=== PATIENT | male | born 1930 | race Caucasian/White ===

== ENCOUNTER 2019-12-23 21:00 | Inpatient (IN) | payer MEDICARE, OTHER ==
[~2019-12-23] VITALS: Ht 177.8 cm; Wt 47.2 kg
[~2019-12-23 21:00] MED LIST: ACET650T10 PO; ACET80DR67 PO; ARIP2TAB3 PO; BACL10TA GT; BISA10SU61 RC; CARB-93 GT; CLON0.5T PO; DEXT15DR23 EACHEYE; FENO145T45 PO; FINA5TAB4 PO; GABA100C GT; LOSA50TA3 PO; MAGN400O21 PO; MYLANTA PO; OXYB-58 PO; OXYM30SP84 NS; PANT40SU PO; SUMA100T PO; TAMS-12 PO
--- NOTE | 2019-12-23 21:00 | NUR ---
BIBEMS FROM [facility] C/O LOW O2 SAT 70'S, 95-98% ON NRB MASK PER EMS REPORT.UPON ARRIVAL O2 SAT 95% ON NRB; PT TO BED 5, NOTED TACHYPNIC, PT ON MONITOR, REPORTS OF 70'S, 98% ON NONRBR, ER DOCTOR AT BEDSIDE FOR EVAL
[2019-12-23 21:30] LABS: BASOPHILS % (AUTO) 0.5 % (0.0-2.0); EOSINOPHILS % (AUTO) 0.2 % (0.0-6.0); HEMATOCRIT 30 % (39-51); HEMOGLOBIN 9.6 g/dL (13.5-17.5); LYMPHOCYTES # (AUTO) 0.9 /CMM (0.8-4.8); LYMPHOCYTES % (AUTO) 9.5 % (20.0-44.0); MEAN CORPUSCULAR HGB CONC 32 g/dl (31.0-36.0); MEAN CORPUSCULAR VOLUME 96 fL (80-96); MONOCYTES # (AUTO) 0.4 /CMM (0.1-1.30); MONOCYTES % (AUTO) 4.3 % (2.0-12.0); NEUTROPHILS # (AUTO) 7.7 /CMM (1.8-8.9); NEUTROPHILS % (AUTO) 85.5 % (43.0-81.0); PLATELET COUNT (AUTO) 478 /CMM (150-450); RED BLOOD CELL COUNT(AUTO) 3.11 MIL/uL (4.5-6.0); WHITE BLOOD COUNT (AUTO) 9.1 K/uL (4.3-11.0)
[2019-12-23] MEDS ORDERED: ACETAMINOPHEN 650 MG/SUPP.RECT RC ONE ×2 (21:30)
[2019-12-23] MEDS ORDERED: IV NS 0.9% 1,000 ML BAG IV ONE ×2 (21:30→23:30)
[2019-12-23 21:39] LABS: CALCIUM, SERUM 8.7 mg/dL (8.5-10.1); CREATININE 0.7 mg/dL (0.6-1.3); POTASSIUM 4.7 mmol/L (3.5-5.1)
--- NOTE | 2019-12-23 21:43 | NUR ---
XRAY AT BEDSIDE
[2019-12-23 21:56] LABS: ALBUMIN 2.6 g/dL (3.4-5.0); BILIRUBIN,DIRECT 0.2 mg/dL (0.0-0.2); BILIRUBIN,TOTAL 0.3 mg/dL (0.2-1.0); TOTAL PROTEIN, SERUM 6.5 g/dL (6.4-8.2)
[2019-12-23 22:12] LABS: APPEARANCE,URINE Slightly Cloudy (CLEAR); BILIRUBIN,URINE Negative (NEGATIVE); BLOOD, URINE Small Ery/uL (NEGATIVE); COLOR,URINE DARK YELLOW (YELLOW); KETONES,URINE Trace (NEGATIVE); LEUKOCYTE ESTERASE ,URINE Small (NEGATIVE); NITRITE, URINE Negative (NEGATIVE); PH,URINE 5.5 (5.0-8.0); PROTEIN,URINE 100 mg/dl (NEGATIVE); UGLUCOSE Negative (NEGATIVE); UROBILINOGEN,URINE 0.2 EU/dL (0.2)
[2019-12-23 22:14] LABS: BACTERIA,URINE Moderate /HPF (None Seen); SQUAMOUS EPITHELIAL CELL,UR Few /HPF (None Seen); YEAST,URINE Many /HPF (None Seen)
--- NOTE | 2019-12-23 22:15 | NUR ---
RSI INITIATED BY DR. RINCON. SEE INTERVENTION NOTES
--- NOTE | 2019-12-23 22:15 | NUR ---
RT note Pt rec'd on NRB 15LPM via [employer] department. pt showed signs of resp distress. Abg taken and given to MD. Pt orally intubated orally via ETT #7.5, secured @ 22CM at the lipline. Clear breath sounds heard bilaterally, adequate O2 saturation and airway pressures noted post intubation. Waiting for chest Xray results. Abg to be taken within 1 hr of intubation. sx'd for thick mod a Alarms are set and audible. Vent plugged into red outlet. Ambu bag bedside. Will continue to monitor closely. Addendum: 12/23/19 at 2301 by DMITRIY BEE RT Amended: Links added.
--- NOTE | 2019-12-23 22:29 | NUR ---
PAGED ALEISHA WERNER
[2019-12-23] MEDS ORDERED: CEFTRIAXONE 1GM BAG (ER ONLY) 1 GM/50 ML PIGGYBACK IV ONE (22:30)
[2019-12-23] MEDS ORDERED: AZITHROMYCIN 500 MG in IV D5W 250 ML IV ONE (22:30)
[2019-12-23] MEDS ORDERED: PROPOFOL 100 ML ONE (22:37)
[2019-12-23] MEDS ORDERED: FAMO40OR5 GT (22:55)
[2019-12-23] MEDS ORDERED: APIX2.5T GT (22:55)
[2019-12-23] MEDS ORDERED: GABA-532 GT (22:55)
[2019-12-23] MEDS ORDERED: ENTA200T GT (22:55)
[2019-12-23] MEDS ORDERED: CYAN-24 GT (22:55)
[2019-12-23] MEDS ORDERED: AZITHROMYCIN 500 MG VIAL ONE (22:56)
[2019-12-23] MEDS ORDERED: CEFTRIAXONE 1GM BAG (ER ONLY) 50 ML IV ONE (22:56)
[2019-12-23] MEDS ORDERED: SUCCINYLCHOLINE CHLORIDE 20 MG/ML VIAL ONE (23:00)
[2019-12-23] MEDS ORDERED: ASPIRIN 300 MG/SUPP.RECT RC ONE ×2 (23:00→23:14)
[2019-12-23] MEDS ORDERED: SUCCINYLCHOLINE CHLORIDE 20 MG/ML VIAL IV ONE (23:00)
[2019-12-23] MEDS ORDERED: PROPOFOL 100 ML IV PRN (23:00)
[2019-12-23] MEDS ORDERED: ETOMIDATE 2 MG/ML VIAL IV ONE (23:00)
[2019-12-23] MEDS ORDERED: ETOMIDATE 2 MG/ML VIAL ONE (23:00)
--- NOTE | 2019-12-23 23:59 | NUR ---
REPORT GIVEN TO TIFFANIE GAO FOR LUIS; PT WILL BE TRANSPORTED TO ICU
[2019-12-24] VITALS (40 sets, daily range): BP systolic 78–160; BP diastolic 24–73
[2019-12-24] MEDS ORDERED: ZOLPIDEM TARTRATE 5 MG TABLET PO PRN
[2019-12-24] MEDS ORDERED: Z GUARD REMEDY 2 OZ OINT TP PRN
[2019-12-24] MEDS ORDERED: ONDANSETRON HCL/PF 4 MG/2 ML VIAL IVP PRN
[2019-12-24] MEDS ORDERED: MAGNESIUM HYDROXIDE 30 ML UDC PO PRN
[2019-12-24] MEDS ORDERED: ENOXAPARIN SODIUM 40 MG/0.4 ML DISP.SYRIN SQ SCH
[2019-12-24] MEDS ORDERED: ACETAMINOPHEN 325 MG TABLET PO PRN
[2019-12-24] MEDS ORDERED: PIPERACILLIN /TAZOBACTAM 3.375 G VIAL IV ONE ×2 (00:12→06:05)
[2019-12-24] MEDS ORDERED: VANCOMYCIN 1 GM in IV D5W 250ml IV ONE (00:30)
[2019-12-24] MEDS ORDERED: VANCOMYCIN 1 GM VIAL ONE (00:35)
[2019-12-24] MEDS ORDERED: MICAFUNGIN SODIUM 100 MG VIAL IV ONE (00:43)
--- NOTE | 2019-12-24 00:50 | NUR ---
PT TRANSPORTED TO ICU. SEEN BY ALPHONSO SALCIDO AT ER
[2019-12-24] MEDS: IV NS 0.9% 1,000 ML IV PRN ×2 (00:58→22:23)
--- NOTE | 2019-12-24 01:00 | NUR ---
RT NOTE ABG TAKEN AND RESULTS GIVEN TO MD. TITRATE FIO2 TO 60% PER MD ORDERS Addendum: 12/24/19 at 0100 by DMITRIY BEE RT Amended: Links added.
[2019-12-24] MEDS: PROPOFOL 100 ML IV PRN ×2 (01:02→16:27)
[2019-12-24] MEDS: PIPERACILLIN /TAZOBACTAM 3.375 G in IV D5W 50 ML IV SCH ×4 (01:05→17:01)
--- NOTE | 2019-12-24 01:15 | NUR ---
ICU/RN RECEIVED PATIENT FROM [facility] FROM ER. PATIENT CAME IN SEDATED AND INTUBATED CURRENTLY WITH NO SIGNS OF ANY RESPIRATORY DISTRESS. PATIENT SEEMS TO BE TOLERATING VENT SETTINGS ORDERED AND SATURATING AT 100%. PATIENT HAS LEFT SIDE PPM. FC INTACT WITH GUICHO CLEAR URINE ASSESSED. LT HAND #20G AND LT WRIST #20 PATENT.PICTURES TAKEN OF WOUNDS. PRPOFOL RUNNING AT 3MCG ON ARRIVAL. ALL SAFETY PRECAUTIONS APPLIED. WILL CONTINUE TO MONITOR PATIENT THROUGHOUT SHIFT.
[2019-12-24] MEDS: MICAFUNGIN SODIUM 100 MG in IV NS 0.9% 100 ML IV SCH (02:29)
[2019-12-24 05:22] LABS: BASOPHILS % (AUTO) 0.3 % (0.0-2.0); EOSINOPHILS % (AUTO) 0.3 % (0.0-6.0); HEMATOCRIT 28 % (39-51); HEMOGLOBIN 8.9 g/dL (13.5-17.5); LYMPHOCYTES # (AUTO) 0.4 /CMM (0.8-4.8); LYMPHOCYTES % (AUTO) 6.7 % (20.0-44.0); MEAN CORPUSCULAR HGB CONC 32 g/dl (31.0-36.0); MEAN CORPUSCULAR VOLUME 96 fL (80-96); MONOCYTES # (AUTO) 0.2 /CMM (0.1-1.30); MONOCYTES % (AUTO) 2.9 % (2.0-12.0); NEUTROPHILS # (AUTO) 5.6 /CMM (1.8-8.9); NEUTROPHILS % (AUTO) 89.8 % (43.0-81.0); PLATELET COUNT (AUTO) 379 /CMM (150-450); RED BLOOD CELL COUNT(AUTO) 2.88 MIL/uL (4.5-6.0); WHITE BLOOD COUNT (AUTO) 6.2 K/uL (4.3-11.0)
[2019-12-24 05:38] LABS: CARBON DIOXIDE 26 mmol/L (21-32); CHLORIDE 98 mmol/L (98-107); PHOSPHORUS 2.7 mg/dL (2.5-4.9); POTASSIUM 3.7 mmol/L (3.5-5.1); SODIUM SERUM 132 mmol/L (136-145); UREA NITROGEN, BLOOD 21 mg/dL (7-18)
[2019-12-24 06:10] LABS: GLUCOSE 118 mg/dL (74-106)
[2019-12-24 06:11] LABS: CALCIUM, SERUM 8.1 mg/dL (8.5-10.1); CREATININE 0.6 mg/dL (0.6-1.3); MAGNESIUM 2.1 mg/dL (1.8-2.4)
[2019-12-24] MEDS ORDERED: FEE PK DOSING 1 MIN EA MC ONE (07:40)
--- NOTE | 2019-12-24 07:48 | NUR ---
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 RECOMMEND SURGICAL/DPM CONSULTS. DR LOUIS AND DR TORRES NOTIFIED OF CONSULT REQUESTS. PT IS ON SELENE ISOFLEX LOW AIRLOSS BED. PT IS INCONTINENT OF STOOL. CHEUNG CATH NOTED. ALL SKIN PROTECTION MEASURES IN PLACE AND DISCUSSED WITH NURSING STAFF. WILL SEE PRN. STONER IN AGREEMENT WITH PLAN OF CARE. Addendum: 12/24/19 at 0750 by MINNIE DUNHAM WNDNU Amended: Links added.
[2019-12-24] MEDS: AMIODARONE HCL 200 MG TABLET PO SCH ×3 (08:33→17:03)
[2019-12-24] MEDS: APIXABAN 2.5 MG TABLET PO SCH ×2 (08:33→17:12)
[2019-12-24 08:35] LABS: CHOLESTEROL 69 mg/dL (<200); HDL CHOLESTEROL 30 mg/dL (40-60); LDL 29 mg/dL (0-99); TRIGLYCERIDES 42 mg/dL (30-150)
[2019-12-24] MEDS: ACETAMINOPHEN 650 MG/20.3 ML UDC NG PRN (08:40)
--- NOTE | 2019-12-24 09:24 | NUR ---
RECEIVED PATIENT IN BED. NO ACUTE DISTRESS NOTED. PATIENT SEDATED ON DIPRIVAN, 10MCG. PATIENT ON MECHANICAL VENTILATOR, SATURATING WELL AT 100%, BREATHING EVEN AND UNLABORED. PATIENT ON FASHION CONSULTANT, SINUS RHYTHM NOTED. PATIENT G-TUBE IN PLACE, INTACT, PATENT, FLUSHED WELL. PATIENT CHEUNG CATHETER IN PLACE, INTACT, DRAINING TO GRAVITY. PATIENT RIGHT HAND IV ACCESS INTACT, PATENT, FLUSHED WELL. PATIENT LEFT HAND IV ACCESS INTACT, PATENT, FLUSHED WELL. PATIENT SAFETY MAINTAINED. WILL CONTINUE TO MONITOR.
[2019-12-24 09:31] LABS: THYROID STIMULATING HORMONE 2.668 uIU/mL (0.358-3.74)
--- NOTE | 2019-12-24 12:48 | NUR ---
RT NOTE PT REMAINS MECHANICALLY VENTILATED VIA 7.5 CUFFED ETT @ 22 CM LIP. CUFF INFLATED. ETT SECURE. VENTILATOR SETTINGS PRESCRIBED. ALARMS SET PER PROTOCOL AND AUDIBLE. VENT PLUGGED IN TO RED OUTLET. AMBU BAG AT BED SIDE. NO DISTRESS NOTED. Addendum: 12/24/19 at 1249 by MANSOOR MORGAN RT Amended: Links added.
[2019-12-24] MEDS: VANCOMYCIN 0.75 GM in IV D5W 250 ML IV SCH (13:47)
[2019-12-24] MEDS ORDERED: LIDOCAINE 1%-EPI 1:100,000 20 ML VIAL TP ONE (18:00)
[2019-12-24] MEDS ORDERED: SILVER NITRATE APPLICATOR 1 EA BOX TP ONE (18:00)
--- NOTE | 2019-12-24 18:13 | NUR ---
PATIENT IN BED. NO ACUTE DISTRESS NOTED. PATIENT SEDATED ON DIPRIVAN, 10MCG. PATIENT ON MECHANICAL VENTILATOR, SATURATING WELL AT 100%, BREATHING EVEN AND UNLABORED. PATIENT ON BARTENDER SERVER, SINUS RHYTHM NOTED. PATIENT G-TUBE IN PLACE, INTACT, PATENT, FLUSHED WELL. PATIENT CHEUNG CATHETER IN PLACE, INTACT, DRAINING TO GRAVITY. PATIENT RIGHT UPPER ARM PICC LINE INTACT, PATENT, FLUSHED WELL. PATIENT RIGHT HAND IV ACCESS INTACT, PATENT, FLUSHED WELL. PATIENT SAFETY MAINTAINED. WILL ENDORSE PLAN OF CARE TO ONCOMING NURSE FOR CONTINUITY OF CARE
--- NOTE | 2019-12-24 19:15 | NUR ---
ICU/RN RECEIVED PATIENT SEDATED AND INTUBATED CURRENTLY WITH NO SIGNS OF ANY RESPIRATORY DISTRESS. PATIENT SEEMS TO BE TOLERATING VENT SETTINGS ORDERED AND SATURATING AT 100%. PATIENT HAS LEFT SIDE PPM. FC INTACT WITH YELLOW CLEAR URINE ASSESSED. LT WRIST #20 AND PICC LINE ON DANELLE WITH PROPOFOL AT 10MCG/KG/MIN AND NS AT 60CC/HR. . GTUBE FEEDING OF JEVITY WITH 60CC RESIDUAL. ALL SAFETY PRECAUTIONS APPLIED. WILL CONTINUE TO MONITOR PATIENT THROUGHOUT SHIFT.
--- NOTE | 2019-12-24 19:48 | NUR ---
RT NOTE PT RECEIVED INTUBATED WITH 7.5 ET TUBE @ 22 CM. MOVED ET TUBE TO MID LIP LINE. AMBU BAG @ HOB. SX DONE, ET TUBE SECURED AND PATENT. SMALL THICK SECRETIONS NOTED. ALARMS ON AND AUDIBLE. NO DISTRESS NOTED AT THIS TIME. WILL CONTINUE TO MONITOR. Addendum: 12/24/19 at 1950 by JESU MAGALLANES RT Amended: Links added.
--- NOTE | 2019-12-24 20:08 | NUR ---
DAUGHTER GAVIN CALLED TO GET STATUS ON PATIENT. ASSURED THAT PATIENT IS TOLERATING VENT WITH NO SIGN OF DISTRESS. DAUGHTER WANTS TO KNOW IF HIS PNUEMONIA IS GETTING BETTER. ADVISED HER THAT HE IS STILL RECEIVING ANTIBIOTICS FOR IT. PATIENT IS STABLE AT THE MOMENT AND TOLD HER WE WOULD CALL WITH ANY CHANGES.
[2019-12-25] VITALS (39 sets, daily range): BP systolic 91–123; BP diastolic 54–77
[2019-12-25] MEDS: MICAFUNGIN SODIUM 100 MG in IV NS 0.9% 100 ML IV SCH ×2 (00:46→23:02)
[2019-12-25] MEDS: PIPERACILLIN /TAZOBACTAM 3.375 G in IV D5W 50 ML IV SCH ×5 (00:46→23:02)
--- NOTE | 2019-12-25 01:08 | NUR ---
RT NOTE TITRATE FIO2 TO 40%. MURRAY MORENO AWARE. NO DISTRESS NOTED AT THIS TIME. WILL CONTINUE TO MONITOR.
[2019-12-25] MEDS: VANCOMYCIN 0.75 GM in IV D5W 250 ML IV SCH ×2 (01:38→14:34)
[2019-12-25] MEDS: HYDROCODONE/APAP 5/325MG 1 EACH TABLET PO PRN (02:34)
[2019-12-25 05:12] LABS: BASOPHILS % (AUTO) 0.1 % (0.0-2.0); EOSINOPHILS % (AUTO) 0.8 % (0.0-6.0); HEMATOCRIT 25 % (39-51); HEMOGLOBIN 8.1 g/dL (13.5-17.5); LYMPHOCYTES # (AUTO) 0.3 /CMM (0.8-4.8); LYMPHOCYTES % (AUTO) 3.5 % (20.0-44.0); MEAN CORPUSCULAR HGB CONC 33 g/dl (31.0-36.0); MEAN CORPUSCULAR VOLUME 94 fL (80-96); MONOCYTES # (AUTO) 0.4 /CMM (0.1-1.30); MONOCYTES % (AUTO) 4.7 % (2.0-12.0); NEUTROPHILS % (AUTO) 90.9 % (43.0-81.0); PLATELET COUNT (AUTO) 343 /CMM (150-450); RED BLOOD CELL COUNT(AUTO) 2.62 MIL/uL (4.5-6.0); WHITE BLOOD COUNT (AUTO) 7.7 K/uL (4.3-11.0)
[2019-12-25 05:24] LABS: CALCIUM, SERUM 8.4 mg/dL (8.5-10.1); CREATININE 0.6 mg/dL (0.6-1.3); MAGNESIUM 2.2 mg/dL (1.8-2.4)
[2019-12-25 05:39] LABS: THYROID STIMULATING HORMONE 1.894 uIU/mL (0.358-3.74); URIC ACID 1.9 mg/dL (2.6-7.2)
[2019-12-25] MEDS: PROPOFOL 100 ML IV PRN ×2 (05:59→16:47)
[2019-12-25 06:09] LABS: ABG BASE EXCESS -0.3 mmol/L; ABG PCO2 46.4 mmHg (35.0-45.0); ABG PH 7.355 (7.350-7.450); ABG PO2 63.5 mmHg (75.0-100.0); AaDO2 603.1 mmHg; COHb 0.4 % (0.5-1.5); MetHb 0.6 % (0.0-1.5); O2Hb 87.1 % (94.0-97.0); SITE, ABG Right Radial
--- NOTE | 2019-12-25 07:44 | NUR ---
PHYSICAL MEDICINE PHYSICIAN: pt.is sedated with 10 mcg/kg/m Diprivan, able to open eyes by touch, coughing, grimacing, increased sedation to 15/20 mcg, on R.wrist restraint, slightly tremor, L.wrist s/s/ oozing wound, covered with mepilex, O2sat. over 97%, no SOB, suctioned well, FiO2 40%, SR, no pacing now, SBP 110-120 now, GTF residual 5 ml, increased rate to 40ml, goal is 50 ml by report, GT still fixed to skin with sutures, was in room/updated, plan: sacral area debridement/consent was not done
[2019-12-25] MEDS: AMIODARONE HCL 200 MG TABLET PO SCH ×3 (08:08→16:26)
[2019-12-25] MEDS: APIXABAN 2.5 MG TABLET PO SCH ×2 (08:09→16:33)
[2019-12-25 08:30] LABS: ABG BASE EXCESS -0.7 mmol/L; ABG OXYGEN SATURATION 98.3 % (92.0-98.5); ABG PCO2 30.1 mmHg (35.0-45.0); ABG PH 7.486 (7.350-7.450); ABG PO2 110.7 mmHg (75.0-100.0); AaDO2 211.9 mmHg; COHb 0.1 % (0.5-1.5); O2Hb 98.2 % (94.0-97.0); PEEP,BG 5 cm H2O; SITE, ABG Right Radial; VENT MODE, BG AC 50%; VT, ABG 500 mL
[2019-12-25 08:30] LABS: ABG BASE EXCESS -0.9 mmol/L; ABG OXYGEN SATURATION 99.3 % (92.0-98.5); ABG PCO2 38.1 mmHg (35.0-45.0); ABG PO2 368.5 mmHg (75.0-100.0); AaDO2 306.4 mmHg; COHb 0.1 % (0.5-1.5); MetHb 0.7 % (0.0-1.5); O2Hb 98.5 % (94.0-97.0); PEEP,BG 5 cm H2O; SITE, ABG Right Radial; VENT MODE, BG AC 18 500 100% +5
[2019-12-25] MEDS: THERAHONEY GEL 1.5 OZ TUBE TP SCH ×2 (08:37→08:38)
[2019-12-25] MEDS: POTASSIUM PHOSPHATE MM 5 MMOL in IV NS 0.9% 100 ML IV SCH ×2 (08:55→10:19)
--- NOTE | 2019-12-25 10:00 | NUR ---
SECOND RIDE FARE COLLECTOR: pt.is sedated well, VSS, O2sat. over 97%, no Potassium Chl powder in the Pyxis, called pharmacy
--- NOTE | 2019-12-25 11:09 | NUR ---
POUNCER MACHINE: updated with pt current condition, ABG, VS, sedation level, neuro status, I/O, GTF, suction amount
[2019-12-25 11:11] LABS: ABG BASE EXCESS 0.5 mmol/L; ABG PCO2 33.7 mmHg (35.0-45.0); ABG PO2 147.4 mmHg (75.0-100.0); COHb 0.1 % (0.5-1.5); O2Hb 98.9 % (94.0-97.0); PEEP,BG 5 cm H2O; SITE, ABG Right Radial; VENT MODE, BG AC 40%; VT, ABG 500 mL
[2019-12-25] MEDS: POTASSIUM CHLORIDE 20 MEQ POWDER PACKET GT SCH ×2 (11:27→13:11)
--- NOTE | 2019-12-25 11:30 | NUR ---
RIPSAW MATCHER: per request reevaluated all orders and send swab for Covid19 PCR test, result will be during 3 days
--- NOTE | 2019-12-25 13:00 | NUR ---
BONE DRIER OPERATOR: is in room/updated with pt.current condition, VS, sedation level, vent setting/suction amount, I/O, GTF, IVF, plan for debridement, orders, swab for Covid PCR test was sent, plan SIMV tomorrow, see new orders
--- NOTE | 2019-12-25 14:32 | NUR ---
SPORTS MARKETING COORDINATOR: Vanco level is still pending
--- NOTE | 2019-12-25 14:36 | NUR ---
BILINGUAL EXECUTIVE ASSISTANT: pt.daughter called/updated with pt current condition, VS, I/O, sedation level, orders, POC
[2019-12-25] MEDS: SOD FERRIC GLUC 125 MG in IV NS 0.9% 100 ML IV SCH (14:45)
--- NOTE | 2019-12-25 17:53 | NUR ---
INTERNAL GRINDING MACHINE OPERATOR: pt is sedated well with 20mcg/kg/m Diprivan, reactive by touch: grimacing, coughing, trace extremities activity, was able to open eyes for seconds, no SOB, no distress noted, SR/no pacing activity, SBP WNL, O2sat. over 96%, suctioned well with thick moderate amount of secretion , all PM/bedbath/skin/wound care done, GTF running 50ml/hr-goal, residual 60 ml now, will notify next nurse, keep HOB over40, UO 900ml/12hrs, Covid19 PCR pending/keep pt.isolated/will notify next nurse, all IVlines are patent, T WNL, consent for debridement is in chart
[2019-12-25] MEDS: IV NS 0.9% 1,000 ML IV PRN (19:46)
[2019-12-26] VITALS (24 sets, daily range): BP systolic 100–134; BP diastolic 38–79
[2019-12-26] MEDS: VANCOMYCIN 0.75 GM in IV D5W 250 ML IV SCH ×2 (00:04→14:17)
[2019-12-26] MEDS: PROPOFOL 100 ML IV PRN (01:14)
[2019-12-26 04:54] LABS: BASOPHILS % (AUTO) 0.3 % (0.0-2.0); EOSINOPHILS % (AUTO) 1.5 % (0.0-6.0); HEMATOCRIT 23 % (39-51); HEMOGLOBIN 7.5 g/dL (13.5-17.5); LYMPHOCYTES # (AUTO) 0.4 /CMM (0.8-4.8); LYMPHOCYTES % (AUTO) 5.9 % (20.0-44.0); MEAN CORPUSCULAR HGB CONC 33 g/dl (31.0-36.0); MEAN CORPUSCULAR VOLUME 95 fL (80-96); MONOCYTES # (AUTO) 0.4 /CMM (0.1-1.30); MONOCYTES % (AUTO) 6.9 % (2.0-12.0); NEUTROPHILS # (AUTO) 5.4 /CMM (1.8-8.9); NEUTROPHILS % (AUTO) 85.4 % (43.0-81.0); PLATELET COUNT (AUTO) 342 /CMM (150-450); RED BLOOD CELL COUNT(AUTO) 2.39 MIL/uL (4.5-6.0); WHITE BLOOD COUNT (AUTO) 6.4 K/uL (4.3-11.0)
[2019-12-26] MEDS: PIPERACILLIN /TAZOBACTAM 3.375 G in IV D5W 50 ML IV SCH ×3 (05:03→17:20)
[2019-12-26 05:09] LABS: CALCIUM, SERUM 7.9 mg/dL (8.5-10.1); CARBON DIOXIDE 28 mmol/L (21-32); CHLORIDE 104 mmol/L (98-107); CREATININE 0.4 mg/dL (0.6-1.3); GLUCOSE 119 mg/dL (74-106); POTASSIUM 3.4 mmol/L (3.5-5.1); SODIUM SERUM 138 mmol/L (136-145); UREA NITROGEN, BLOOD 9 mg/dL (7-18)
[2019-12-26 05:11] LABS: MAGNESIUM 1.9 mg/dL (1.8-2.4); PHOSPHORUS 1.9 mg/dL (2.5-4.9)
--- NOTE | 2019-12-26 05:41 | NUR ---
RN NOTE NOTED WITH POTASSIUM OF 3.4. ALEISHA WERNER SUPERVISOR PRINT LINE NOTIFIED WITH ORDER TO ADMINISTER POTASSIUM CHLORIDE 20 MEQ IV. ORDER NOTED AND CARRIED OUT.
[2019-12-26] MEDS: POTASSIUM CL. PREMIX PERIPHER. 50 ML IV SCH ×2 (06:00→07:09)
--- NOTE | 2019-12-26 06:59 | NUR ---
RN CLOSING NOTE NO ACUTE CHANGES OBSERVED OVERNIGHT. PT SEDATED IN BED IN SEMI OGDEN'S POSITION. WITH RIGHT UPPER ARM PICC LINE WITH PROPOFOL 25MCG/KG/MIN AND NS @ 60ML/HOUR RUNNING WITHOUT COMPLICATIONS NOTED AT SITE. CHEUNG CATHETER PATENT AND IN PLACE DRAINING CLEAR YELLOW URINE. PT ON MECHANICAL VENTILATOR VIA ETT AND TOLERATING SETTINGS WELL. VITAL SIGNS WNL. RESPIRATIONS EVEN AND UNLABORED. PT TO HAVE SACRAL DEBRIDEMENT WITH DR. GRIMES TODAY. PT TO START SIMV TODAY PER PULMONOLOGY. ALL NEEDS MET AND ATTENDED TO AT THIS TIME. CALL LIGHT WITHIN REACH, SAFETY MEASURES IN PLACE, WILL ENDORSE TO MORNING RN FOR CONTINUATION OF CARE.
--- NOTE | 2019-12-26 07:30 | NUR ---
RN OPENING NOTE Received patient sedated in bed appears calm and relaxed. On propofol 25mcg/kg/hr running on DANELLE PICC line. no signs of distress. On ETT 7.10/21 vent settings AC 12 TV 500 FIO2 40% PEEP 5 tolerating well. Tele monitor reading SR with 1st degree HB and inverted T wave. On GT feeding Jevity 1.2 @ 50ml/hr. Woods catheter in place draining light yellow urine by gravity Has R hand soft wrist restraints no signs of decreased circulation. Safety measures reinforced. Will cont to monitor.
[2019-12-26] MEDS: THERAHONEY GEL 1.5 OZ TUBE TP SCH (08:46)
[2019-12-26] MEDS: AMIODARONE HCL 200 MG TABLET PO SCH ×3 (08:46→16:38)
--- NOTE | 2019-12-26 09:20 | NUR ---
PROPOFOL TITRATED AND TURNED OFF. PATIENT IS AWAKE NO SIGNS OF DISTRESS. RT CHANGED TO SIMV FIO2 30% ABG IN 1 HR.
[2019-12-26] MEDS ORDERED: DC PROPOFOL WHEN EXTUBATED XX PRN ×2 (10:00→10:30)
[2019-12-26] MEDS ORDERED: POTASSIUM PHOSPHATE MM 15 MMOL in IV NS 0.9% 250 ML IV SCH ×2 (10:00→12:00)
[2019-12-26] MEDS ORDERED: MAGN400O6 GT (10:18)
[2019-12-26] MEDS ORDERED: NA P133E RC (10:18)
[2019-12-26] MEDS ORDERED: ACET1OOV6 HHN (10:18)
[2019-12-26] MEDS ORDERED: CHOL200013 GT (10:18)
[2019-12-26] MEDS ORDERED: CRAN400C GT (10:18)
[2019-12-26] MEDS ORDERED: ARGI1POW13 GT (10:18)
[2019-12-26] MEDS ORDERED: DEXT1DRO6 OP (10:18)
[2019-12-26] MEDS ORDERED: DOCU-141 GT (10:18)
[2019-12-26] MEDS ORDERED: CYAN10006 IJ (10:18)
[2019-12-26] MEDS ORDERED: OMEG-167 GT (10:18)
[2019-12-26] MEDS ORDERED: BISA10SU11 RC (10:18)
[2019-12-26 10:19] LABS: ABG OXYGEN SATURATION 94.2 % (92.0-98.5); ABG PCO2 34.8 mmHg (35.0-45.0); ABG PH 7.482 (7.350-7.450); ABG PO2 68.8 mmHg (75.0-100.0); AaDO2 104.2 mmHg; COHb 0.5 % (0.5-1.5); MetHb 0.3 % (0.0-1.5); O2Hb 93.4 % (94.0-97.0); SITE, ABG Right Radial; VENT MODE, BG SIMV 4 PS 15 30% +5
--- NOTE | 2019-12-26 10:20 | NUR ---
ABG RESULTS RELAYED TO DR. SCHAEFER WITH ORDERS TO EXTUBATE.
[2019-12-26] MEDS ORDERED: LACT-209 GT (10:30)
[2019-12-26] MEDS: JEVITY 1.2 CAL 1,000 ML BOTTLE GT PRN (10:42)
--- NOTE | 2019-12-26 10:55 | NUR ---
PT WAS EXTUBATED TOLERATED WELL. VITAL SIGNS WITHIN NORMAL LIMITS. IMMEDIATELY PUT ON NC 5L. WILL CONT TO MONITOR.
--- NOTE | 2019-12-26 11:00 | NUR ---
RT PATIENT WEANED AND EXTUBATED PER DR PARIKH ORDER. PATIENT PLACED ON SUPPLEMENTAL O2 AUDREY WELL. CONT TO MONITOR Addendum: 12/26/19 at 1221 by LUCRECIA JOSE RT Amended: Links added.
--- NOTE | 2019-12-26 11:50 | NUR ---
SEEN BY DR SALOMON NO NEW ORDER AT THIS TIME
[2019-12-26] MEDS: APIXABAN 2.5 MG TABLET PO SCH ×2 (11:51→16:39)
[2019-12-26] MEDS: SOD FERRIC GLUC 125 MG in IV NS 0.9% 100 ML IV SCH (15:46)
--- NOTE | 2019-12-26 18:48 | NUR ---
RN CLOSING NOTE Patient asleep in bed appears calm and relaxed. On NC 2L tolerating well. No signs of distress. AO X1 mumbles words. Noted with tremors throughout the day. Tele monitor reading SR with 1st degree HB and inverted T wave. On GT feeding Jevity 1.2 @ 50ml/hr tolerating well. Checked placement. Woods catheter in place drained 1200ml clear yellow urine. Flushed water for hydration frequently throughout the day. Has DANELLE PICC line and R hand # 20 flushed well. Has bilateral soft wrist restraints no signs of decreased circulation. Elevated extremities. Vital signs within normal limits. Suctioned by mouth PRN. All due meds given. No signs of pain or discomfort. Safety measures reinforced. Will endorse to plant operator/shift supervisor nurse for wilman.
--- NOTE | 2019-12-26 19:20 | NUR ---
BURNER MACHINE OPERATOR OPENING NOTES: Received pt sleeping in bed, easily arousable. On 2L/min NC tolerating well. No SOB or respiratory distress noted. SR w/ 1st degree heart block on tele monitor. DANELLE PICC and R hand #20 patent and flushed. Dressings c/d/i. NS infusing at 60ml/hr. LEAD PROGRAMMER restraints in place. Will remove/check circulation per protocol.GT site patent and flushed. No residual noted. Jevity 1.2 infusing at 50ml/hr tolerating well. Woods cath in place draining urine via gravity. Safety measures in place. Will continue to monitor.
--- NOTE | 2019-12-26 20:47 | NUR ---
TELECOMMUNICATIONS OFFICER NOTE: Daughter Jolanta called. Updated her on pt's status. Stated she'd like to be called tomorrow morning after rounds and speak to the hospitalist. Phone number: [phone]. Will endorse to AM nurse
[2019-12-27] VITALS (21 sets, daily range): BP systolic 112–138; BP diastolic 45–77
[2019-12-27] MEDS: PIPERACILLIN /TAZOBACTAM 3.375 G in IV D5W 50 ML IV SCH ×5 (00:02→23:03)
[2019-12-27] MEDS: VANCOMYCIN 0.75 GM in IV D5W 250 ML IV SCH ×2 (01:15→12:23)
[2019-12-27 04:09] LABS: BASOPHILS % (AUTO) 0.3 % (0.0-2.0); HEMATOCRIT 26 % (39-51); HEMOGLOBIN 8.4 g/dL (13.5-17.5); LYMPHOCYTES # (AUTO) 0.5 /CMM (0.8-4.8); LYMPHOCYTES % (AUTO) 7.4 % (20.0-44.0); MEAN CORPUSCULAR HGB CONC 33 g/dl (31.0-36.0); MEAN CORPUSCULAR VOLUME 94 fL (80-96); MONOCYTES # (AUTO) 0.7 /CMM (0.1-1.30); MONOCYTES % (AUTO) 9.4 % (2.0-12.0); NEUTROPHILS # (AUTO) 5.9 /CMM (1.8-8.9); NEUTROPHILS % (AUTO) 81.9 % (43.0-81.0); PLATELET COUNT (AUTO) 410 /CMM (150-450); RED BLOOD CELL COUNT(AUTO) 2.72 MIL/uL (4.5-6.0); WHITE BLOOD COUNT (AUTO) 7.2 K/uL (4.3-11.0)
[2019-12-27 04:25] LABS: CALCIUM, SERUM 8.7 mg/dL (8.5-10.1); CARBON DIOXIDE 31 mmol/L (21-32); CHLORIDE 104 mmol/L (98-107); CREATININE 0.5 mg/dL (0.6-1.3); GLUCOSE 107 mg/dL (74-106); MAGNESIUM 1.9 mg/dL (1.8-2.4); POTASSIUM 4.3 mmol/L (3.5-5.1); SODIUM SERUM 139 mmol/L (136-145); UREA NITROGEN, BLOOD 11 mg/dL (7-18)
--- NOTE | 2019-12-27 06:50 | NUR ---
CONTRACTS PARALEGAL CLOSING NOTES: Pt remains on 2LPM NC tolerating well. No SOB or respiratory distress noted throughout shift. No acute changes noted throughout shift. GTF patent and flushed with minimal residuals noted. Jevity 1.2 infusing at 50ml/hr tolerating well. BSWR remain in place. Woods cath in place, draining yellow urine. All meds given as ordered. Wound tx rendered as ordered. Kept clean and dry. RT did nasotracheal suctioning x1 during shift. Safety measures in place. Will continue to monitor.
[2019-12-27] MEDS: AMIODARONE HCL 200 MG TABLET PO SCH ×3 (08:19→16:08)
[2019-12-27] MEDS: APIXABAN 2.5 MG TABLET PO SCH ×2 (08:22→16:07)
[2019-12-27] MEDS: THERAHONEY GEL 1.5 OZ TUBE TP SCH (08:22)
[2019-12-27] MEDS ORDERED: FLUCONAZOLE (100 MG) 100 MG TABLET PO SCH (11:30)
[2019-12-27] MEDS: PROSOURCE / PROSTAT (PYXIS) 30 ML UDC GT SCH ×2 (15:26→16:08)
[2019-12-27] MEDS: SOD FERRIC GLUC 125 MG in IV NS 0.9% 100 ML IV SCH (15:27)
[2019-12-27] MEDS: JEVITY 1.2 CAL 1,000 ML BOTTLE GT PRN (16:08)
--- NOTE | 2019-12-27 17:00 | NUR ---
AIRBRUSH ARTIST TECHNICALcustomer success advocate note Received transfer order from Dr. Cali -> [id number], per ACLS protocol, receiving RN Joan @bedside. Patient on 2L O2 SPO2 100%, RR 25, even, unlabored, no SOB. Tele monitor attached, suction set up. A/Ox1, verbalizes simple needs. GT in place, verified via auscultation/aspiration. Stomach soft+nontender. Woods removed per MD order @7825. Endorsed stool OB collection. Daughter (spoke to Dr. Castillo today) aware of transfer, no belongings. Texted Dr. Castillo for medication per daughter's request to thin mucus -> awaiting response
--- NOTE | 2019-12-27 17:10 | NUR ---
MS/field service poultry technician Patient transferred from ICU, room 261.
[2019-12-27] MEDS: ACETYLCYSTEINE 10% SOLN 400 MG/4 ML VIAL NEB SCH (18:00)
--- NOTE | 2019-12-27 18:21 | NUR ---
MS/RN End note Patient remains in stable condition, IVAB hung as ordered, no reaction noted. GT feeding at 55ml/hr, no residual, appears to be tolerating feeding well. Will endorse to night monitor.
--- NOTE | 2019-12-27 19:15 | NUR ---
RN OPENING NOTES Received patient awake, A/Ox1. On O2 via NC @2LPM, saturating well, no distress noted at this time. With GTF infusing well as ordered. On fall and aspiration precautions. Will continue to monitor according.
[2019-12-28] VITALS: BP 127/66
[2019-12-28] MEDS: ACETYLCYSTEINE 10% SOLN 400 MG/4 ML VIAL NEB SCH ×4 (00:11→17:05)
[2019-12-28] MEDS: VANCOMYCIN 0.75 GM in IV D5W 250 ML IV SCH ×2 (01:34→13:16)
[2019-12-28] MEDS: PIPERACILLIN /TAZOBACTAM 3.375 G in IV D5W 50 ML IV SCH ×4 (05:41→23:36)
[2019-12-28 06:27] LABS: BASOPHILS % (AUTO) 0.2 % (0.0-2.0); EOSINOPHILS % (AUTO) 0.5 % (0.0-6.0); HEMATOCRIT 31 % (39-51); HEMOGLOBIN 10.1 g/dL (13.5-17.5); LYMPHOCYTES # (AUTO) 0.4 /CMM (0.8-4.8); LYMPHOCYTES % (AUTO) 5.3 % (20.0-44.0); MEAN CORPUSCULAR HGB CONC 32 g/dl (31.0-36.0); MEAN CORPUSCULAR VOLUME 94 fL (80-96); MONOCYTES # (AUTO) 0.6 /CMM (0.1-1.30); MONOCYTES % (AUTO) 7.1 % (2.0-12.0); NEUTROPHILS # (AUTO) 7.3 /CMM (1.8-8.9); NEUTROPHILS % (AUTO) 86.9 % (43.0-81.0); PLATELET COUNT (AUTO) 393 /CMM (150-450); RED BLOOD CELL COUNT(AUTO) 3.33 MIL/uL (4.5-6.0); WHITE BLOOD COUNT (AUTO) 8.4 K/uL (4.3-11.0)
[2019-12-28 06:32] LABS: CARBON DIOXIDE 29 mmol/L (21-32); CHLORIDE 101 mmol/L (98-107); CREATININE 0.5 mg/dL (0.6-1.3); GLUCOSE 129 mg/dL (74-106); MAGNESIUM 1.9 mg/dL (1.8-2.4); PHOSPHORUS 2.9 mg/dL (2.5-4.9); POTASSIUM 4.3 mmol/L (3.5-5.1); SODIUM SERUM 136 mmol/L (136-145); UREA NITROGEN, BLOOD 15 mg/dL (7-18)
--- NOTE | 2019-12-28 06:38 | NUR ---
RN CLOSING NOTES Pt asleep on bed, on O2 via NC at 2LPM, saturating well. No s/sx of distress/discomfort noted. All nursing needs attended. Due meds given as ordered. GTF tolerated well. Kept on bed clean, dry and comfortable. On fall and aspiration precautions. Endorsed.
--- NOTE | 2019-12-28 07:30 | NUR ---
PARK KEEPER NOTES PT IN BED, AWAKE, NON VERBAL, NO SIGN OF PAIN OR DISTRESS, ON VENT/TRACH, GT FEEDING INFUSING WELL, KEPT WWARM AND COMFORTABLE IN BED.
[2019-12-28 08:00] VITALS: BP 111/61
[2019-12-28] MEDS: AMIODARONE HCL 200 MG TABLET PO SCH ×3 (08:21→17:09)
[2019-12-28] MEDS: APIXABAN 2.5 MG TABLET PO SCH ×2 (08:22→17:09)
[2019-12-28] MEDS: PROSOURCE / PROSTAT (PYXIS) 30 ML UDC GT SCH ×3 (09:09→17:08)
[2019-12-28] MEDS: THERAHONEY GEL 1.5 OZ TUBE TP SCH (11:04)
--- NOTE | 2019-12-28 12:19 | NUR ---
OIL PIPELINE OPERATOR NOTES PT IN BED, RESTING, NO SIGN OF PAIN OR DISTRESS, KEPT CLEAN AND DRY, REPOSITIONED FOR COMFORT, DUE MEDS GIVEN ORDERED.
[2019-12-28 13:07] LABS: BAND % (MANUAL) 4 % (0.0-5.0); EOSINOPHILS % (MANUAL) 1 % (0-4); LYMPHOCYTES % (MANUAL) 5 % (16-48); MONOCYTES % (MANUAL) 7 % (0-11.0); MYELOCYTES % 4 % (0-0); NEUTROPHILS % (MANUAL) 79 (42-76)
[2019-12-28] MEDS: SOD FERRIC GLUC 125 MG in IV NS 0.9% 100 ML IV SCH (15:09)
[2019-12-28 16:00] VITALS: BP 129/74
--- NOTE | 2019-12-28 19:00 | NUR ---
TATTOO AND BODY ARTIST NOTES PT IN BED, AWAKE, NON VERBAL, NO SIGN OF PAIN OR DISTRESS, GT FEEDING INFUSING WELL, DUE MEDS GIVEN ORDERED, PM CARE PROVIDED, ALL NEEDS ATTENDED.
--- NOTE | 2019-12-28 19:40 | NUR ---
INDUSTRIAL GAS SERVICER HELPER OPENING NOTES RECEIVED PATIENT FROM MORNING SHIFT ALERT AND ORIENTED X 1 OPENS EYES. BREATHING REGULAR AND UNLABORED ON OXYGEN AT 2L/MIN VIA NASAL CANNULA. RIGHT UPPER ARM PICC LINE INTACT AND PATENT, FLUSHING WELL WITH NO BLEEDING OR S/S OF INFILTRATION NOTED. ON CARDIAC MONITORING WITH NSR WITH 1ST DEGREE AV BLOCK AT 75bpm. GTUBE PATENT WITH ON-GOING FEEDING, NO RESIDUAL ASPIRATED. ON ASPIRATION PRECAUTIONS. NO S/S OF PAIN/DISCOMFORT SEEN AT THIS TIME. BED LOW AND LOCKED ON SEMI FOWLERS POSITION. CALL LIGHT IN REACH. WILL CONTINUE TO MONITOR.
[2019-12-28 20:00] VITALS: BP 126/66
[2019-12-28 21:06] VITALS: BP 126/66
[2019-12-28] MEDS: JEVITY 1.2 CAL 1,000 ML BOTTLE GT PRN (21:57)
[2019-12-29] VITALS: BP 131/72
[2019-12-29] MEDS: ACETYLCYSTEINE 10% SOLN 400 MG/4 ML VIAL NEB SCH ×4 (00:17→19:39)
[2019-12-29] MEDS: VANCOMYCIN 0.75 GM in IV D5W 250 ML IV SCH ×2 (00:47→13:54)
[2019-12-29 01:09] VITALS: BP 131/72
--- NOTE | 2019-12-29 02:30 | NUR ---
DEBLOCKER NOTES WOUND CARE PROVIDED. STOOL SPECIMEN FOR OB TAKEN.
[2019-12-29 04:00] VITALS: BP 119/72
[2019-12-29] MEDS: PIPERACILLIN /TAZOBACTAM 3.375 G in IV D5W 50 ML IV SCH ×3 (05:13→17:01)
--- NOTE | 2019-12-29 06:35 | NUR ---
STOCKROOM CLERK CLOSING NOTES PATIENT IN BED ALERT AND ORIENTED X 1 OPENS EYES. AFEBRILE WITH NO S/S OF DISTRESS OBSERVED. RIGHT UPPER ARM PICC LINE PATENT AND INFUSING WELL. MAINTAINED ON CARDIAC MONITORING WITH NSR WITH 1ST DEGREE AV BLOCK AT 75bpm. GTUBE PATENT WITH ON-GOING FEEDING TOLERATING WELL. ON ASPIRATION PRECAUTIONS. NO S/S OF PAIN/DISCOMFORT NOTED AT THIS TIME. BED LOW AND LOCKED ON SEMI FOWLERS POSITION. CALL LIGHT IN REACH. WILL ENDORSE TO MORNING SHIFT FOR LUIS.
--- NOTE | 2019-12-29 07:18 | NUR ---
ENERGY MANAGER NOTES PATIENT RECEIVED IN BED RESTING COMFORTABLY, ALERT AND ORIENTED X 1. ON OPTICAL MODEL MAKER AND TESTER, FIRST DEGREE AV BLOCK, 69. ON NASAL CANNULA, 2L, WITH NO SIGNS OF RESPIRATORY DISTRESS AT THIS TIME, WITH NON-LABORED BREATHING AND NO SOB NOTED. IV ACCESS INTACT AND PATENT. SKIN WARM AND DRY TO TOUCH. PATIENT ON G-TUBE FEEDING JEVITY 1.2, TOLERATING FEEDING WELL. SAFETY PRECAUTIONS IMPLEMENTED WITH BED LOCKED, BED IN THE LOWEST POSITION, BED ALARM ON, BILATERAL SIDE RAILS UP AND CALL WITHIN EASY REACH OF THE PATIENT. WILL CONTINUE TO MONITOR PATIENT.
[2019-12-29 08:00] VITALS: BP 131/77
[2019-12-29] MEDS: FUROSEMIDE 40 MG/4 ML VIAL IV SCH ×2 (08:18→12:33)
[2019-12-29] MEDS: AMIODARONE HCL 200 MG TABLET PO SCH ×3 (08:18→17:00)
[2019-12-29] MEDS: APIXABAN 2.5 MG TABLET PO SCH ×2 (08:19→16:54)
[2019-12-29] MEDS: PROSOURCE / PROSTAT (PYXIS) 30 ML UDC GT SCH ×3 (08:31→16:57)
[2019-12-29 08:38] LABS: OCCULT BLOOD STOOL NEGATIVE (NEGATIVE)
[2019-12-29 09:28] LABS: CARBON DIOXIDE 31 mmol/L (21-32); CHLORIDE 101 mmol/L (98-107); CREATININE 0.5 mg/dL (0.6-1.3); GLUCOSE 111 mg/dL (74-106); MAGNESIUM 2.2 mg/dL (1.8-2.4); PHOSPHORUS 3.5 mg/dL (2.5-4.9); POTASSIUM 4.6 mmol/L (3.5-5.1); SODIUM SERUM 137 mmol/L (136-145); UREA NITROGEN, BLOOD 16 mg/dL (7-18)
[2019-12-29 09:40] LABS: BASOPHILS % (AUTO) 0.2 % (0.0-2.0); EOSINOPHILS % (AUTO) 0.7 % (0.0-6.0); HEMATOCRIT 26 % (39-51); HEMOGLOBIN 8.5 g/dL (13.5-17.5); LYMPHOCYTES # (AUTO) 0.8 /CMM (0.8-4.8); LYMPHOCYTES % (AUTO) 5.7 % (20.0-44.0); MEAN CORPUSCULAR HGB CONC 33 g/dl (31.0-36.0); MEAN CORPUSCULAR VOLUME 94 fL (80-96); MONOCYTES # (AUTO) 0.8 /CMM (0.1-1.30); MONOCYTES % (AUTO) 5.8 % (2.0-12.0); NEUTROPHILS # (AUTO) 11.5 /CMM (1.8-8.9); NEUTROPHILS % (AUTO) 87.6 % (43.0-81.0); PLATELET COUNT (AUTO) 497 /CMM (150-450); RED BLOOD CELL COUNT(AUTO) 2.78 MIL/uL (4.5-6.0); WHITE BLOOD COUNT (AUTO) 13.1 K/uL (4.3-11.0)
[2019-12-29] MEDS: THERAHONEY GEL 1.5 OZ TUBE TP SCH (10:11)
[2019-12-29] MEDS: SOD FERRIC GLUC 125 MG in IV NS 0.9% 100 ML IV SCH (15:09)
[2019-12-29 16:00] VITALS: BP 116/67
--- NOTE | 2019-12-29 19:18 | NUR ---
MS RN NOTES PATIENT IN BED RESTING COMFORTABLY, ALERT AND ORIENTED X 1. ON NASAL CANNULA, 2L, WITH NO SIGNS OF RESPIRATORY DISTRESS AT THIS TIME, WITH NON-LABORED BREATHING AND NO SOB NOTED. IV ACCESS INTACT AND PATENT. SKIN KEPT CLEAN, WARM AND DRY TO TOUCH. MET ALL OF PATIENT'S NEEDS. PATIENT ON G-TUBE FEEDING JEVITY 1.2, TOLERATING FEEDING WELL. SAFETY PRECAUTIONS IMPLEMENTED WITH BED LOCKED, BED IN THE LOWEST POSITION, BED ALARM ON, BILATERAL SIDE RAILS UP AND CALL WITHIN EASY REACH OF THE PATIENT. WILL ENDORSE PLAN OF CARE TO UPCOMING NURSE.
[2019-12-29 20:00] VITALS: BP 120/64
--- NOTE | 2019-12-29 20:00 | NUR ---
MS RN OPENING NOTE: Received patient in bed resting comfortably. Patient responds to his name, nods, and speaks softly. Patient denies pain or discomfort. Noted patient on 2L Oxygen, nasal canula. Patient is tolerating oxygen. No SOB. Breathing is unlabored and equal. Noted right upper earm PICC line. Flushes well, patent, no redness, or infiltration. Safety precaution is in place; bed is in the lowest level, brakes are locked, side rails x2 are up, and call light is within reach. Will continue plan of care.
[2019-12-29] MEDS ORDERED: MAGNESIUM HYDROXIDE 30 ML UDC GT PRN (23:30)
[2019-12-29] MEDS ORDERED: BISACODYL SUPP (10 MG) 10 MG/SUPP.RECT SUPP.RECT RC PRN (23:30)
[2019-12-29] MEDS ORDERED: NA PHOS,M-B/NA PHOS,DI-BA 1 EA ENEMA RC PRN (23:30)
[2019-12-30] MEDS ORDERED: ZOLPIDEM TARTRATE 5 MG TABLET GT PRN (00:23)
[2019-12-30] MEDS: PIPERACILLIN /TAZOBACTAM 3.375 G in IV D5W 50 ML IV SCH ×5 (00:37→23:55)
[2019-12-30] MEDS: VANCOMYCIN 0.75 GM in IV D5W 250 ML IV SCH ×2 (01:41→12:52)
[2019-12-30] MEDS: CARBIDOPA/LEVODOPA 25/100 MG 1 UDTAB GT SCH ×5 (06:12→21:22)
[2019-12-30 07:10] LABS: BASOPHILS % (AUTO) 0.3 % (0.0-2.0); EOSINOPHILS % (AUTO) 0.8 % (0.0-6.0); HEMATOCRIT 28 % (39-51); HEMOGLOBIN 8.8 g/dL (13.5-17.5); LYMPHOCYTES # (AUTO) 0.8 /CMM (0.8-4.8); LYMPHOCYTES % (AUTO) 5.8 % (20.0-44.0); MEAN CORPUSCULAR HGB CONC 32 g/dl (31.0-36.0); MEAN CORPUSCULAR VOLUME 94 fL (80-96); MONOCYTES % (AUTO) 7.4 % (2.0-12.0); NEUTROPHILS # (AUTO) 11.6 /CMM (1.8-8.9); NEUTROPHILS % (AUTO) 85.7 % (43.0-81.0); PLATELET COUNT (AUTO) 542 /CMM (150-450); RED BLOOD CELL COUNT(AUTO) 2.93 MIL/uL (4.5-6.0); WHITE BLOOD COUNT (AUTO) 13.6 K/uL (4.3-11.0)
[2019-12-30 07:21] LABS: CREATININE 0.6 mg/dL (0.6-1.3); MAGNESIUM 2.1 mg/dL (1.8-2.4); PHOSPHORUS 3.6 mg/dL (2.5-4.9); POTASSIUM 4.4 mmol/L (3.5-5.1)
[2019-12-30] MEDS: JEVITY 1.2 CAL 1,000 ML BOTTLE GT SCH (07:21)
--- NOTE | 2019-12-30 08:00 | NUR ---
MS RN NOTES PATIENT IN BED RESTING NO SOB OR ACUTE DISTRESS NOTED. PATIENT NONE VERBAL ON 2 LITERS OFF NC. BED IN LOW LOCKED POSITION. PICC LINE INTACT, PATENT. WILL CONTINUE TO MONITOR.
[2019-12-30] MEDS: ACETYLCYSTEINE 10% SOLN 400 MG/4 ML VIAL HHN SCH ×2 (08:04→15:39)
--- NOTE | 2019-12-30 08:15 | NUR ---
MS RN CLOSING NOTE: Patient in bed sleeping but easily arousable. Patient on 2L Oxygen, nasal canula. Patient is tolerating oxygen. No SOB. Breathing is unlabored and equal. Safety precaution is in place; bed is in the lowest level, brakes are locked, side rails x2 are up, and call light is within reach. Will continue plan of care.
--- NOTE | 2019-12-30 08:17 | NUR ---
Will endorse to next shift.
[2019-12-30 08:30] LABS: ABG BASE EXCESS 3.9 mmol/L; ABG OXYGEN SATURATION 96.3 % (92.0-98.5); ABG PCO2 40.7 mmHg (35.0-45.0); ABG PH 7.457 (7.350-7.450); ABG PO2 84.6 mmHg (75.0-100.0); COHb 0.9 % (0.5-1.5); O2Hb 95.4 % (94.0-97.0); SITE, ABG Left Radial; VENT MODE, BG Nasal Cannula
[2019-12-30] MEDS ORDERED: DOCUSATE SODIUM 100 MG CAPSULE PO SCH (09:00)
[2019-12-30] MEDS: GABAPENTIN 100 MG CAPSULE GT SCH ×2 (09:24→22:06)
[2019-12-30] MEDS: DOCUSATE SODIUM LIQ 100 MG/10 ML UDC GT SCH (09:24)
[2019-12-30] MEDS: APIXABAN 2.5 MG TABLET GT SCH ×2 (09:25→17:40)
[2019-12-30] MEDS: ENTACAPONE 200 MG TABLET GT SCH ×2 (09:26→17:40)
[2019-12-30] MEDS: BACLOFEN (10 MG) 10 MG TABLET GT SCH ×2 (09:26→21:21)
[2019-12-30] MEDS: AMIODARONE HCL 200 MG TABLET GT SCH ×3 (09:27→17:39)
[2019-12-30] MEDS: PROSOURCE / PROSTAT (PYXIS) 30 ML UDC GT SCH ×3 (09:27→17:40)
[2019-12-30] MEDS: THERAHONEY GEL 1.5 OZ TUBE TP SCH (09:28)
[2019-12-30] MEDS: ACETYLCYSTEINE 10% SOLN 400 MG/4 ML VIAL NEB SCH ×3 (12:52→23:24)
--- NOTE | 2019-12-30 13:00 | NUR ---
MS RN NOTES PATIENT PLACED ON ROOM AIR SATURATING 95 - 96%. WILL CONTINUE TO MONITOR.
--- NOTE | 2019-12-30 19:20 | NUR ---
MS RN NOTES RECEIVED ON BED NO VERBAL,BREATHING REGULAR,NOT IN ANY FORM OF DISTRESS.JEVITY FEEDING AT 55ML/HR RATE IN PROGRESS VIA FEEDING PUMP TOLERATED WELL, NO RESIDUAL VOLUME NOTED.HOB ELEVATED.REPOSITION PER PROTOCOL,CALL LIGHT IN REACH,WILL CONTINUE TO MONITOR STATUS.
--- NOTE | 2019-12-30 19:34 | NUR ---
MS RN NOTES ALL DUE MEDICATIONS ADMINISTERED. ALL NEEDS MET. NO ACUTE CHANGES NOTED DURING AM SHIFT. ENDORSED CARE TO PM SHIFT.
[2019-12-30 20:00] VITALS: BP 109/46
[2019-12-30 20:14] VITALS: BP 109/46
[2019-12-31] MEDS: VANCOMYCIN 0.75 GM in IV D5W 250 ML IV SCH ×2 (01:09→13:37)
[2019-12-31] MEDS: PIPERACILLIN /TAZOBACTAM 3.375 G in IV D5W 50 ML IV SCH ×2 (05:25→11:33)
[2019-12-31] MEDS: CARBIDOPA/LEVODOPA 25/100 MG 1 UDTAB GT SCH ×5 (06:34→21:11)
--- NOTE | 2019-12-31 06:35 | NUR ---
MS RN NOTES NO SIGNIFICANT CHANGE IN STATUS.,REMAINS NON VERBAL.GT FEEDING TOLERATED WELL,NO N/V/D NOTED.IVF AT TKO INFUSING WELL/SACRAL WOUND DRESSING DONE.BILATERAL FOOT ELEVATED ON PILLOWS.IN NO ACUTE DISTRESS.POSSIBLE D/C TODAY,IN NO ACUTE DISTRESS.WILL ENDORSE TO DAY NURSE FOR LUIS.
[2019-12-31] MEDS: ACETYLCYSTEINE 10% SOLN 400 MG/4 ML VIAL NEB SCH ×3 (07:30→23:30)
--- NOTE | 2019-12-31 07:41 | NUR ---
MS RN NOTES PATIENT IN BED RESTING NO SOB OR ACUTE DISTRESS NOTED. PATIENT NONE VERBAL ON RA. BED IN LOW LOCKED POSITION. PICC LINE INTACT, PATENT. WILL CONTINUE TO MONITOR.
[2019-12-31 07:47] LABS: BASOPHILS % (AUTO) 0.4 % (0.0-2.0); EOSINOPHILS % (AUTO) 0.6 % (0.0-6.0); HEMATOCRIT 26 % (39-51); HEMOGLOBIN 8.3 g/dL (13.5-17.5); LYMPHOCYTES # (AUTO) 0.7 /CMM (0.8-4.8); LYMPHOCYTES % (AUTO) 5.9 % (20.0-44.0); MEAN CORPUSCULAR HGB CONC 32 g/dl (31.0-36.0); MEAN CORPUSCULAR VOLUME 95 fL (80-96); MONOCYTES # (AUTO) 0.7 /CMM (0.1-1.30); MONOCYTES % (AUTO) 6.4 % (2.0-12.0); NEUTROPHILS # (AUTO) 9.8 /CMM (1.8-8.9); NEUTROPHILS % (AUTO) 86.7 % (43.0-81.0); PLATELET COUNT (AUTO) 496 /CMM (150-450); RED BLOOD CELL COUNT(AUTO) 2.71 MIL/uL (4.5-6.0); WHITE BLOOD COUNT (AUTO) 11.3 K/uL (4.3-11.0)
[2019-12-31 08:00] VITALS: BP 105/64
[2019-12-31 08:54] LABS: BAND % (MANUAL) 3 % (0.0-5.0); EOSINOPHILS % (MANUAL) 2 % (0-4); LYMPHOCYTES % (MANUAL) 5 % (16-48); MONOCYTES % (MANUAL) 9 % (0-11.0); NEUTROPHILS % (MANUAL) 81 (42-76)
[2019-12-31] MEDS: ACETYLCYSTEINE 10% SOLN 400 MG/4 ML VIAL HHN SCH ×2 (09:00→17:00)
[2019-12-31] MEDS: ENTACAPONE 200 MG TABLET GT SCH ×2 (09:04→17:37)
[2019-12-31] MEDS: GABAPENTIN 100 MG CAPSULE GT SCH ×2 (09:04→21:11)
[2019-12-31] MEDS: DOCUSATE SODIUM LIQ 100 MG/10 ML UDC GT SCH (09:04)
[2019-12-31] MEDS: AMIODARONE HCL 200 MG TABLET GT SCH ×3 (09:05→17:38)
[2019-12-31] MEDS: BACLOFEN (10 MG) 10 MG TABLET GT SCH ×2 (09:05→21:11)
[2019-12-31] MEDS: APIXABAN 2.5 MG TABLET GT SCH ×2 (09:06→17:37)
[2019-12-31] MEDS: PROSOURCE / PROSTAT (PYXIS) 30 ML UDC GT SCH ×3 (09:06→17:38)
[2019-12-31] MEDS: THERAHONEY GEL 1.5 OZ TUBE TP SCH (09:06)
[2019-12-31 09:16] LABS: CALCIUM, SERUM 8.9 mg/dL (8.5-10.1); CREATININE 0.6 mg/dL (0.6-1.3); MAGNESIUM 2.1 mg/dL (1.8-2.4); PHOSPHORUS 3.3 mg/dL (2.5-4.9); POTASSIUM 4.5 mmol/L (3.5-5.1)
[2019-12-31] MEDS ORDERED: AMIO200T7 GT (10:23)
[2019-12-31] MEDS ORDERED: LIDOCAINE 1%-EPI 1:100,000 20 ML VIAL TP ONE (15:00)
[2019-12-31 16:04] VITALS: BP 129/55
[2019-12-31] MEDS: JEVITY 1.2 CAL 1,000 ML BOTTLE GT SCH (18:01)
--- NOTE | 2019-12-31 18:45 | NUR ---
MS RN NOTES PATIENT IN BED RESTING NO SOB OR ACUTE DISTRESS NOTED. PATIENT ALERT, ORIENTED X 3. ALL DUE MEDICATIONS ADMINISTERED. ALL NEEDS MET. NO ACUTE CHANGES NOTED DURING SHIFT. WILL ENDORSE CARE TO PM SHIFT.
--- NOTE | 2019-12-31 19:45 | NUR ---
TELEPHONE TRIAGE NURSE: RECEIVED REPORT FROM SAMINA GAO AT 1930. PT IN BED, AWAKE, ABLE TO ANSWER YES TO SIMPLE QUESTION. SUCTION SET UP SECURED, HIGH ASPIRATION RISK. DANELLE PICC LINE TLC PATENT AND FLUSHING WELL, 2 [place] PORT/LUMEN NOTED WITH BRISK BLOOD RETURN, RED PORT/LUMEN ABLE TO FLUSH WITH 10 CC NS BUT NO BLOOD RETURN OBTAINED. DRESSING C/D/I. PT HAS GTUBE IN PLACED,. JEVITY 1.2 AT 60ML/HR. SCD IN USE. DC HELD DUE TO FAMILY APPEAL, AWAITING LIVANTA DECISION. BLE OFFLOADED ON PILLOWS. SAFETY PRECAUTIONS FOR FALL INITIATED, CALL LIGHT IN REACH, WILL CONTINUE MONITORING PT.
[2019-12-31 20:00] VITALS: BP 110/63
--- NOTE | 2019-12-31 21:11 | NUR ---
RN NOTES: GTUBE PATENCY CHECK PERFORMED, OBTAINED 10CC OF RESIDUAL, FEEDING/MILK APPEARANCE. ABDOMEN SOFT TO TOUCH WITH ACTIVE BOWEL SOUND EHARD UPON AUSCULTATION. PT HAD SOFT BM , SCANTY IN AMOUNT. ABLE TO FLUSH GTUBE WITH 60ML OF WATER WITHOUT MEETING ANY RESISTANCE.
--- NOTE | 2019-12-31 21:20 | NUR ---
rn notes: md hospitalist application support technician made aware of latest temp,made aware of latest cxr result, labs 9wbc), on iv atb for uti and pna, blood culture result came back no growth final result, ua cx result sera albicans, okay to give tylenol per md. orders read back verified and carried out.
[2019-12-31] MEDS: ACETAMINOPHEN 650 MG/20.3 ML UDC NG PRN (21:27)
--- NOTE | 2019-12-31 21:27 | NUR ---
PRN TYLENOL: RECHECK TEMP , TYMPANIC 100.1, PRN TYLENOL ADMINISTERED VIA GTUBE, COOLING MEASURES PROVIDED
--- NOTE | 2019-12-31 21:45 | NUR ---
RN NOTES: RECEIVED CALL FROM PT'S SISTER. ASKING FOR UPDATE. UPDATE PROVIDED TO FAMILY BASED ON PLAN OF CARE, PT'S CONDITION, VS, LATEST LAB RESULT AND IMAGING.
--- NOTE | 2019-12-31 22:22 | NUR ---
rn notes/latest temp: recheck pt's temp via tympanic t 98.0, also check orally result is t 98.0
[2019-12-31 23:42] VITALS: BP 110/63
--- NOTE | 2020-01-01 00:29 | NUR ---
RN NOTES: PT AWAKE, STATED HE WANTS A TYLENOL, INFORMED PT TYLENOLL WAS ALREADY GI=ERIC VIA GTUBE LAST NIGHT. THEN PT REQUESTED FOR SPECIAL BOTTLE TO URINATE, OFFERED URINAL, PT NODDED AND STATED YES, ASSISTED PT IN PLACING URINAL, PT VOIDED IN URINAL 100ML.
--- NOTE | 2020-01-01 02:00 | NUR ---
RN NOTES: SEEN PT SLEEPING, APPEARS CALM AND COMFORTABLE, NO FACIAL GRIMAXCE NOTED, RESPIRATIONS EVEN AND UNLABORED.
[2020-01-01 05:30] VITALS: BP 115/66
[2020-01-01] MEDS: CARBIDOPA/LEVODOPA 25/100 MG 1 UDTAB GT SCH ×5 (06:19→20:53)
--- NOTE | 2020-01-01 06:51 | NUR ---
end of shift report: pt remains a/o x1, on ra spo2 ranging 94-95%. ismael picc line tlc remains patent and flushing well, no s/s of iv infiltration noted. gtube feeding infusing at 60ml/hr. chlorhexidine bath provided to pt. PLAN OF CARE: Awaiting decision regarding appeal from [employer]. to monitor off atb. vs remains stable, needs attended. safety precautions for fall remains engaged, call light in reach, will endorse to day rn for continuity of care.
[2020-01-01] MEDS: ACETYLCYSTEINE 10% SOLN 400 MG/4 ML VIAL NEB SCH ×3 (07:50→23:20)
[2020-01-01 08:00] VITALS: BP 114/66
--- NOTE | 2020-01-01 08:00 | NUR ---
MS METAL BENCH PATTERNMAKER: RECEIVED PT IN BED, AWAKE, ABLE TO ANSWER YES TO SIMPLE QUESTION. ABLE TO TALK TO THE DAUGHTER IN A SOFT VOICE VIA PHONE IN INDONESIAN. SUCTION SET UP SECURED, HIGH ASPIRATION RISK. DANELLE PICC LINE TLC PATENT AND FLUSHING WELL, 2 [place] PORT/LUMEN NOTED WITH BRISK BLOOD RETURN, RED PORT/LUMEN ABLE TO FLUSH WITH 10 CC NS BUT NO BLOOD RETURN OBTAINED. DRESSING C/D/I. PT HAS G TUBE IN PLACE,. JEVITY 1.2 AT 60ML/HR. SCD IN USE. DC HELD DUE TO FAMILY APPEAL, AWAITING LIVANTA DECISION. BLE OFFLOADED ON PILLOWS. SAFETY PRECAUTIONS FOR FALL INITIATED, CALL LIGHT IN REACH, WILL CONTINUE MONITORING PT.
[2020-01-01 08:22] LABS: BASOPHILS # (AUTO) 0.1 /CMM (0.0-0.2); BASOPHILS % (AUTO) 0.7 % (0.0-2.0); EOSINOPHILS % (AUTO) 0.8 % (0.0-6.0); HEMATOCRIT 27 % (39-51); HEMOGLOBIN 8.8 g/dL (13.5-17.5); LYMPHOCYTES # (AUTO) 0.6 /CMM (0.8-4.8); LYMPHOCYTES % (AUTO) 6.8 % (20.0-44.0); MEAN CORPUSCULAR HGB CONC 32 g/dl (31.0-36.0); MEAN CORPUSCULAR VOLUME 96 fL (80-96); MONOCYTES # (AUTO) 0.5 /CMM (0.1-1.30); MONOCYTES % (AUTO) 5.9 % (2.0-12.0); NEUTROPHILS # (AUTO) 7.5 /CMM (1.8-8.9); NEUTROPHILS % (AUTO) 85.8 % (43.0-81.0); PLATELET COUNT (AUTO) 507 /CMM (150-450); RED BLOOD CELL COUNT(AUTO) 2.85 MIL/uL (4.5-6.0); WHITE BLOOD COUNT (AUTO) 8.7 K/uL (4.3-11.0)
[2020-01-01 08:40] LABS: CALCIUM, SERUM 8.7 mg/dL (8.5-10.1); CARBON DIOXIDE 30 mmol/L (21-32); CHLORIDE 98 mmol/L (98-107); CREATININE 0.5 mg/dL (0.6-1.3); GLUCOSE 100 mg/dL (74-106); MAGNESIUM 2.4 mg/dL (1.8-2.4); PHOSPHORUS 3.6 mg/dL (2.5-4.9); POTASSIUM 4.6 mmol/L (3.5-5.1); SODIUM SERUM 131 mmol/L (136-145); UREA NITROGEN, BLOOD 17 mg/dL (7-18)
[2020-01-01] MEDS: PROSOURCE / PROSTAT (PYXIS) 30 ML UDC GT SCH ×3 (08:50→16:35)
[2020-01-01] MEDS: BACLOFEN (10 MG) 10 MG TABLET GT SCH ×2 (08:50→20:53)
[2020-01-01] MEDS: GABAPENTIN 100 MG CAPSULE GT SCH ×2 (08:50→21:11)
[2020-01-01] MEDS: DOCUSATE SODIUM LIQ 100 MG/10 ML UDC GT SCH (08:50)
[2020-01-01] MEDS: AMIODARONE HCL 200 MG TABLET GT SCH ×3 (08:51→16:40)
[2020-01-01] MEDS: ENTACAPONE 200 MG TABLET GT SCH ×2 (08:51→16:34)
[2020-01-01] MEDS: APIXABAN 2.5 MG TABLET GT SCH ×2 (08:52→16:38)
[2020-01-01] MEDS: THERAHONEY GEL 1.5 OZ TUBE TP SCH (08:55)
[2020-01-01 13:59] LABS: LYMPHOCYTES % (MANUAL) 6 % (16-48); MONOCYTES % (MANUAL) 7 % (0-11.0); MYELOCYTES % 3 % (0-0); NEUTROPHILS % (MANUAL) 84 (42-76)
[2020-01-01 16:00] VITALS: BP 91/52
[2020-01-01] MEDS: HYDROCODONE/APAP 5/325MG 1 EACH TABLET PO PRN (16:35)
--- NOTE | 2020-01-01 18:19 | NUR ---
PT RESTING IN BED WITH EYES OPEN.VERBALLY RESPONSIVE IN A SOFT VOICE IN BRAZILIAN.GOOD PERICARE RENDERED. MADE SOFT BROWN BM X4 ; 2 LARGE SOFT BM AND 2 SMALL SOFT BROWN BM AND VOIDS YELLOW URINE IN LARGE AMOUNTS. WOUND TX DONE ORDERED.TURNED EVERY TWO HRS. SUCTIONED ORAL SECRETIONS NEEDED. KEPT CLEAN AND DRY.HOB ELEVATED WITH ONGOING GT FEEDING (JEVITY)RUNNING AT 60 ML/HR TOLERATING WELL WITH NO RESIDUALS NOTED. WITH ASPIRATION PRECAUTIONS.
[2020-01-01 20:00] VITALS: BP 106/57
--- NOTE | 2020-01-01 20:00 | NUR ---
MS/RN OPENING NOTES RECEIVED PATIENT IN BED, HOB ELEVATED, ON ROOM AIR RESPIRATIONS EVEN AND UNLABORED, PATIENT CAN SPEAK SOFTLY AND REPORTED " IM WET", AND TO KEEP PATIENT COMFORTABLE, TROUBLE CLERK AT BEDSIDE, CHANGING PATIENT. FAMILY CALLED AND ASK HOW PATIENT IS DOING AND WHEN PATIENT WILL BE DISCHARGED, PER LILIBETH KEEN TO FOLLOW UP ONCE PATIENT HAS BEEN CLEARED AND TO BE DISCHARGE TO [facility] ONCE THERE IS AVAILABILITY OF ROOM. PATIENT UNCLEAR SPEECH ABLE TO COMMUNICATE BY FACIAL AND SOFT VOICE, MONITORED FOR ANY CHANGES, EXTENSIVE HEADSTART TEACHER NEEDED, GTUBE PATENT WITH NO RESIDUALS,
--- NOTE | 2020-01-01 20:10 | NUR ---
MS/RN NOTES PATIENT GTUBE FEEDING PATENT WITH NO RESIDUAL. IV SITE ON DANELLE PICC LINE PATENT. INCONTINENT.
[2020-01-02] MEDS: JEVITY 1.2 CAL 1,000 ML BOTTLE GT SCH (02:39)
[2020-01-02] MEDS: CARBIDOPA/LEVODOPA 25/100 MG 1 UDTAB GT SCH ×2 (06:02→11:31)
--- NOTE | 2020-01-02 06:26 | NUR ---
310-1 MS/RN NOTES PATIENT IN BED, ALERT X2, CAN COMMUNICATE USING FACE AND UNCLEAR SPEECH, ATTENDED TO ALL NEEDS, LEPT COMFORTABLE. GTUBE PATENT, KEPT SKIN INTACT AND DRY. OFF LOAD. BED LOCKED, CALL LIGHTS WITHIN REACH. MONITORED FOR SAFETY. WILL ENDORSE TO AM RN FOR LUIS. FAMILY MADE AWARE FOR ANY CONCERNS.
--- NOTE | 2020-01-02 07:10 | NUR ---
MS RN OPENING NOTES RECEIVED PATIENT RESTING IN BED AT THIS TIME, AOX1-2 WITH FAINT UNCLEAR SPEECH. NO SOB NOTED, NO S/S OF ANY ACUTE DISTRESS NOTED, NO C/O PAIN AT THIS TIME. RESPIRATIONS EVEN AND UNLABORED ON RA. DANELLE PICC LINE INTACT, PATENT AND FLUSHING WELL. G-TUBE NOTED WITH NO RESIDUAL. ASPIRATION AND SAFETY PRECAUTIONS IN PLACE AND MAINTAINED AT ALL TIMES. BED IN LOWEST LOCKED POSITION, SIDE RAILS UP, HOB ELEVATED TO SEMI FOWLERS POSITION, CALL LIGHT WITHIN REACH. WILL CONTINUE TO MONITOR
[2020-01-02] MEDS: ACETYLCYSTEINE 10% SOLN 400 MG/4 ML VIAL NEB SCH (07:34)
[2020-01-02 08:00] VITALS: BP 109/58
[2020-01-02] MEDS: GABAPENTIN 100 MG CAPSULE GT SCH (09:28)
[2020-01-02] MEDS: ENTACAPONE 200 MG TABLET GT SCH (09:28)
[2020-01-02] MEDS: DOCUSATE SODIUM LIQ 100 MG/10 ML UDC GT SCH (09:28)
[2020-01-02 09:29] VITALS: BP 109/58
[2020-01-02] MEDS: AMIODARONE HCL 200 MG TABLET GT SCH (09:29)
[2020-01-02] MEDS: BACLOFEN (10 MG) 10 MG TABLET GT SCH (09:29)
[2020-01-02] MEDS: APIXABAN 2.5 MG TABLET GT SCH (09:31)
[2020-01-02] MEDS: PROSOURCE / PROSTAT (PYXIS) 30 ML UDC GT SCH (09:32)
[2020-01-02] MEDS: THERAHONEY GEL 1.5 OZ TUBE TP SCH (09:33)
--- NOTE | 2020-01-02 11:12 | NUR ---
PATIENT PENDING DISCHARGE. [facility] TRANSFER REPORT CALLED TO MURRAY DANIELS. WILL CONTINUE TO MONITOR
--- NOTE | 2020-01-02 11:32 | NUR ---
PATIENT WILL BE DISCHARGED TO [facility]. TRANSFER REPORT GIVEN TO MURRAY DANIELS. PER MURRAY DANIELS REQUESTED NOT TO D/C DANELLE PICC LINE. ZAC , CHARGE NURSE MADE AWARE. WILL CONTINUE TO MONITOR
--- NOTE | 2020-01-02 12:25 | NUR ---
MS PROCESS EQUIPMENT OPERATOR NOTES PATIENT [facility] AT [facility]. PT IS STABLE. ALL BELONGINGS ACCOUNTED FOR AND SIGNED. PICTURES TAKEN, SIGNED AND FILED IN CHART. ALL DISCHARGE INSTRUCTIONS REPORTED TO MURRAY DANIELS AT [facility]. PER MURRAY DANIELS, DO NOT D/C DANELEL PICC LINE. DANELLE PICC LINE IN PLACE. ZAC CHARGE NURSE MADE AWARE. ALL CARE, WOUND TREATMENT AND MEDICATIONS ADMINISTERED ANTICIPATED PER ORDER. G-TUBE IN PLACE AND SECURE.
[2020-01-28] MEDS ORDERED: CYANOCOBALAMIN 1,000 MCG/ML VIAL IJ SCH (09:00)
== END 2020-01-02 12:30 | DRG 853 ==
LOC: ER 21:04 → ICU 23:14 → TELE 12-27 16:50 → MED 12-29 13:04
PROVIDERS: ADMIT Nurse Practitioner Acute Care; ATTEND Student in an Organized Health Care Education/Training Program
PROC: 5A1945Z Respiratory Ventilation, 24-96 Consecutive Hours (ICD-10-PCS; principal; 2019-12-23)
PROC: 0BH17EZ Insertion of Endotracheal Airway into Trachea, Via Natural or Artificial Opening (ICD-10-PCS; 2019-12-23)
PROC: 02HV33Z Insertion of Infusion Device into Superior Vena Cava, Percutaneous Approach (ICD-10-PCS; 2019-12-24)
PROC: B548ZZA Ultrasonography of Superior Vena Cava, Guidance (ICD-10-PCS; 2019-12-24)
PROC: 0KBP0ZZ Excision of Left Hip Muscle, Open Approach (ICD-10-PCS; 2019-12-27)
PROC: 0KBN0ZZ Excision of Right Hip Muscle, Open Approach (ICD-10-PCS; 2019-12-27)
DX: A41.9 Sepsis, unspecified organism (principal); L89.154 Pressure ulcer of sacral region, stage 4; J96.01 Acute respiratory failure with hypoxia; I21.A1 Myocardial infarction type 2; J69.0 Pneumonitis due to inhalation of food and vomit; N17.0 Acute kidney failure with tubular necrosis; E87.1 Hypo-osmolality and hyponatremia; E44.0 Moderate protein-calorie malnutrition; B37.49 Other urogenital candidiasis; E87.2 Acidosis; Z68.1 Body mass index [BMI] 19.9 or less, adult; E86.0 Dehydration; G20 Parkinson's disease; F02.80 Dementia in other diseases classified elsewhere, unspecified severity, without behavioral disturbance, psychotic disturbance, mood disturbance, and anxiety; G43.909 Migraine, unspecified, not intractable, without status migrainosus; I48.0 Paroxysmal atrial fibrillation; Z79.01 Long term (current) use of anticoagulants; Z93.1 Gastrostomy status; N32.81 Overactive bladder; D63.8 Anemia in other chronic diseases classified elsewhere; E86.1 Hypovolemia; R73.9 Hyperglycemia, unspecified; E88.09 Other disorders of plasma-protein metabolism, not elsewhere classified; Z95.0 Presence of cardiac pacemaker; L89.150 Pressure ulcer of sacral region, unstageable; M24.571 Contracture, right ankle; M24.572 Contracture, left ankle; L89.896 Pressure-induced deep tissue damage of other site; D50.9 Iron deficiency anemia, unspecified; N40.1 Benign prostatic hyperplasia with lower urinary tract symptoms; M20.42 Other hammer toe(s) (acquired), left foot; M20.41 Other hammer toe(s) (acquired), right foot; E87.6 Hypokalemia; R13.10 Dysphagia, unspecified; I10 Essential (primary) hypertension
CPT/HCPCS: 31720; 36415; 36600; 71045-TC; 80048-TC; 80061-TC; 80076-TC; 80202-TC; 81000-TC; 82272-TC; 82728-TC; 82803-TC; 83540-TC; 83605-TC; 83735-TC; 83880; 84100-TC; 84439-TC; 84443-TC; 84484-TC; 84550-TC; 85025-TC; 85378-TC; 85730-TC; 86140-TC; 87040-TC; 87081-TC; 87086-TC; 93307-TC; 94002-TC; 94003-TC; 94799-TC; 99082-TC; A4217; A6253; A6403; C1751; G0378; J0330; J0456; J0696; J1650; J1940; J2248; J2543; J2916; J3370; J3480; J3490; J7030; J7050; J7060; U0003-CS

== ENCOUNTER 2020-01-27 09:26 | Emergency (ER) | payer MEDICARE, OTHER ==
[~2020-01-27] VITALS: Ht 165.1 cm; Wt 54.0 kg
[~2020-01-27 09:26] MED LIST changes: +ACET1OOV6 HHN; -ACET650T10 PO; -ACET80DR67 PO; +AMIO200T7 GT; +APIX2.5T GT; +ARGI1POW13 GT; -ARIP2TAB3 PO; +BISA10SU11 RC; -BISA10SU61 RC; +CHOL200013 GT; -CLON0.5T PO; +CRAN400C GT; +CYAN-24 GT; +CYAN10006 IM; +DEXT1DRO6 OP; +DOCU-141 GT; +ENTA200T GT; +FAMO40OR5 GT; -FENO145T45 PO; -FINA5TAB4 PO; +GABA-532 GT; +LACT-209 GT; -LOSA50TA3 PO; -MAGN400O21 PO; +MAGN400O6 GT; -MYLANTA PO; +NA P133E RC; +OMEG-167 GT; -OXYB-58 PO; -OXYM30SP84 NS; -PANT40SU PO; -SUMA100T PO; -TAMS-12 PO
--- NOTE | 2020-01-27 09:26 | NUR ---
PT TIARA FROM [facility] C/O SOB LOW 02 SAT PER EMS. PT IS AAOX0 RESPOND TO VOICE. NOT IN RESPIRATORY DSITRESS, HOOKED TO O2 AT 2 LPM VIA NC AND ASSOCIATE PATHOLOGIST, KEPT RESTED AND COMFORTABLE. WILL CONTINUE TO MONITOR.
--- NOTE | 2020-01-27 09:44 | NUR ---
PT SEEN AND EXAMINED BY .
[2020-01-27] MEDS ORDERED: ACETAMINOPHEN 650 MG/SUPP.RECT RC ONE (09:59)
[2020-01-27] MEDS ORDERED: CEFTRIAXONE 1GM BAG (ER ONLY) 1 GM/50 ML PIGGYBACK IV ONE (10:00)
--- NOTE | 2020-01-27 10:00 | NUR ---
URINE SPECIMEN COLLECTED ADN SENT TO LAB.
[2020-01-27] MEDS: IV NS 0.9% 1,000 ML IV ONE (10:07)
[2020-01-27] MEDS: ACETAMINOPHEN 650 MG/SUPP.RECT RC ONE (10:07)
--- NOTE | 2020-01-27 10:08 | NUR ---
ER PHLEB AT BEDSIDE FOR BLOOD DRAW.
[2020-01-27] MEDS: CEFTRIAXONE 1 G in IV D5W 50 ML IV ONE (10:12)
[2020-01-27 10:20] LABS: BASOPHILS % (AUTO) 0.4 % (0.0-2.0); EOSINOPHILS % (AUTO) 1.2 % (0.0-6.0); HEMATOCRIT 33 % (39-51); HEMOGLOBIN 10.3 g/dL (13.5-17.5); LYMPHOCYTES # (AUTO) 0.6 /CMM (0.8-4.8); MEAN CORPUSCULAR HGB CONC 32 g/dl (31.0-36.0); MEAN CORPUSCULAR VOLUME 94 fL (80-96); MONOCYTES # (AUTO) 0.8 /CMM (0.1-1.30); MONOCYTES % (AUTO) 7.1 % (2.0-12.0); NEUTROPHILS # (AUTO) 10.3 /CMM (1.8-8.9); NEUTROPHILS % (AUTO) 86.3 % (43.0-81.0); PLATELET COUNT (AUTO) 456 /CMM (150-450); RED BLOOD CELL COUNT(AUTO) 3.49 MIL/uL (4.5-6.0); WHITE BLOOD COUNT (AUTO) 11.9 K/uL (4.3-11.0)
--- NOTE | 2020-01-27 10:23 | NUR ---
PETROLOGY TEACHER AT BEDSIDE FOR XRAY.
[2020-01-27 10:24] LABS: APPEARANCE,URINE Clear (CLEAR); BILIRUBIN,URINE Negative (NEGATIVE); BLOOD, URINE Small Ery/uL (NEGATIVE); COLOR,URINE Yellow (YELLOW); KETONES,URINE Negative (NEGATIVE); LEUKOCYTE ESTERASE ,URINE Small (NEGATIVE); NITRITE, URINE Negative (NEGATIVE); PH,URINE 7.5 (5.0-8.0); PROTEIN,URINE Negative (NEGATIVE); UGLUCOSE Negative (NEGATIVE); UROBILINOGEN,URINE 0.2 EU/dL (0.2)
[2020-01-27 10:27] LABS: CALCIUM, SERUM 8.2 mg/dL (8.5-10.1); CREATININE 0.6 mg/dL (0.6-1.3); POTASSIUM 4.5 mmol/L (3.5-5.1)
[2020-01-27 10:33] LABS: ALBUMIN 2.1 g/dL (3.4-5.0); BILIRUBIN,DIRECT 0.1 mg/dL (0.0-0.2); BILIRUBIN,TOTAL 0.3 mg/dL (0.2-1.0); TOTAL PROTEIN, SERUM 5.8 g/dL (6.4-8.2)
[2020-01-27] MEDS ORDERED: FENO145T21 GT (10:34)
[2020-01-27] MEDS ORDERED: MULT-447 GT (10:34)
[2020-01-27] MEDS ORDERED: OMEP40CA13 GT (10:34)
[2020-01-27] MEDS ORDERED: POLY15DR40 EACHEYE (10:34)
[2020-01-27] MEDS ORDERED: NA P133E RC (10:34)
[2020-01-27] MEDS ORDERED: ACET-2605 GT (10:34)
[2020-01-27] MEDS ORDERED: CRAN3875 GT (10:34)
[2020-01-27] MEDS ORDERED: ACET-868 GT (10:34)
[2020-01-27] MEDS ORDERED: AMIO200T4 GT (10:34)
[2020-01-27] MEDS ORDERED: AMIN30LI2 GT (10:34)
[2020-01-27] MEDS ORDERED: LOSA50TA39 GT (10:34)
[2020-01-27] MEDS ORDERED: KETO5DRO39 EACHEYE (10:34)
[2020-01-27] MEDS ORDERED: LORA-259 GT (10:34)
[2020-01-27 10:35] LABS: BACTERIA,URINE Rare /HPF (None Seen); SQUAMOUS EPITHELIAL CELL,UR Rare /HPF (None Seen)
[2020-01-27] MEDS: AZITHROMYCIN 500 MG in IV D5W 250 ML IV ONE (10:35)
--- NOTE | 2020-01-27 10:52 | NUR ---
COVID SPECIMEN COLLECTED AND SENT TO LAB.
--- NOTE | 2020-01-27 11:48 | NUR ---
CALLED [facility] FOR TRANSPORT TO [facility]. ETA 1215.
--- NOTE | 2020-01-27 11:49 | NUR ---
REPORT GIVEN TO MRURAY REYEZ OF [facility].
[2020-01-27 12:35] VITALS: BP 110/73
--- NOTE | 2020-01-27 12:35 | NUR ---
[facility] 38 AT PT BEDSIDE FOR PT TRANSPORT BACK TO FACILITY. PT IS IN STABLE CONDITION. NAD NOTED. REPORT GIVEN TO AMBULANCE STAFF.
--- NOTE | 2020-01-31 15:14 | NUR ---
URINE CULTURE RESULT FAXED TO [phone]
== END 2020-01-27 12:45 ==
LOC: ER 09:29
DX: R53.1 Weakness (principal); E86.0 Dehydration; Z20.828 Contact with and (suspected) exposure to other viral communicable diseases; I48.92 Unspecified atrial flutter; G20 Parkinson's disease; F02.80 Dementia in other diseases classified elsewhere, unspecified severity, without behavioral disturbance, psychotic disturbance, mood disturbance, and anxiety; I12.9 Hypertensive chronic kidney disease with stage 1 through stage 4 chronic kidney disease, or unspecified chronic kidney disease; N18.9 Chronic kidney disease, unspecified
CPT/HCPCS: 36415; 71045; 80048; 80076; 81001; 83605; 84145; 84484; 85025; 85730; 87040 ×2; 87086; 87106; 87426; 93005; 96365; 96368; 99285; J0456; J0696; J7030; J7060; 81000-TC; C9803-CS